=== PATIENT | male | born 1990 ===

== ENCOUNTER 2018-04-29 11:19 | Emergency (ER) | payer OTHER, SELFPAY ==
[2018-04-29 12:34] LABS: HIV (1/2) Antibody/Antigen Non-Reactive (NonReactive); HIV 1/2 INDEX 0.08 S/CO (<1.00); Hep C IgG Ab Non-Reactive (NonReactive)
[2018-04-29 13:23] LABS: HBSAB Concentration 173.44 mIU/mL; Hep B Surf AB REACTIVE (NonReactive)
== END 2018-04-29 11:56 | disposition home or self-care (01) ==
LOC: ERS 11:19
DX: Z77.21 Contact with and (suspected) exposure to potentially hazardous body fluids (principal)
CPT/HCPCS: 36415; 86706; 86803; 87389; 99282